=== PATIENT | female | born 1980 | race African-American/Black ===

== ENCOUNTER 2017-11-22 08:22 | Emergency (ER) | payer BC ==
[~2017-11-22] VITALS: Ht 177.8 cm; Wt 110.2 kg
[2017-11-22 08:35] VITALS: BP 124/73
[2017-11-22] MEDS ORDERED: KETOROLAC TROMETH 60MG/2ML VIAL IM ONE (09:30)
== END 2017-11-22 09:59 | disposition home or self-care (01) ==
LOC: ER 08:26
DX: S39.012A Strain of muscle, fascia and tendon of lower back, initial encounter (principal); V43.52XA Car driver injured in collision with other type car in traffic accident, initial encounter; Y93.89 Activity, other specified; Y92.89 Other specified places as the place of occurrence of the external cause; Y99.8 Other external cause status
CPT/HCPCS: 72100; 96372; 99284; J1885

== ENCOUNTER 2020-01-17 09:30 | Emergency (ER) | payer OTHER, BC ==
[~2020-01-17] VITALS: Ht 177.8 cm; Wt 95.3 kg
[2020-01-17 10:37] VITALS: BP 135/93
[2020-01-17 10:55] LABS: Urine Bacteria FEW /hpf (None Seen); Urine Blood TRACE /uL (Negative); Urine Mucus MODERATE (None Seen); Urine Specific Gravity 1.037 (1.001-1.035); Urine WBC 3 /hpf (0 - 5)
== END 2020-01-17 12:09 | disposition home or self-care (01) ==
LOC: ER 09:30
DX: S30.0XXA Contusion of lower back and pelvis, initial encounter (principal); M62.838 Other muscle spasm; V59.9XXA Occupant (driver) (passenger) of pick-up truck or van injured in unspecified traffic accident, initial encounter; Y93.89 Activity, other specified; Y92.410 Unspecified street and highway as the place of occurrence of the external cause; Y99.8 Other external cause status
CPT/HCPCS: 72040; 72100; 81001

== ENCOUNTER 2020-10-13 22:10 | Emergency (ER) | payer BC ==
[~2020-10-13] VITALS: Ht 180.3 cm; Wt 115.7 kg
[2020-10-13 23:59] LABS: Basophils # (auto) 0 10 ^3/uL (0-0.2); Basophils % (auto) 0.5 % (0.0-2.0); Eosinophils # (auto) 0.2 10 ^3/uL (0-0.8); Hematocrit 31.3 % (36.0-46.0); Hemoglobin 10.2 g/dL (12.2-16.2); Lymphocytes # (auto) 2.9 10 ^3/uL (0.4-5.4); Lymphocytes % (auto) 38.3 % (10.0-50.0); Mean Corpuscular Hemoglobin 22.9 pg (28.0-32.0); Mean Corpuscular Hgb Conc. 32.5 g/dL (32.0-36.0); Mean Corpuscular Volume 70.5 fL (80.0-100.0); Monocytes # (auto) 0.6 10 ^3/uL (0-1.3); Monocytes % (auto) 8.2 % (0.0-12.0); Neutrophils # (auto) 3.9 10 ^3/uL (1.6-8.6); Nucleated Red Blood Cells % 0.1 %; Red Blood Cells 4.43 10^6/uL (4.0-5.20); Red Cell Distribution Width 16.9 % (11.8-14.3); White Blood Cell 7.6 10^3/uL (4.4-10.8)
[2020-10-14 00:17] LABS: INR 0.99 (0.9-1.15); Partial Thromboplastin Time 27.9 sec (23.0-31.2)
[2020-10-14 00:24] LABS: Alanine Aminotransferase 17 U/L (13-56); Anion Gap 8 (5-15); Aspartate Aminotransferase 13 U/L (15-37); BUN/Creatinine Ratio 13.5; Blood Urea Nitrogen 13 mg/dL (7-18); Calcium 8.1 mg/dL (8.5-10.1); Carbon Dioxide 22 mmol/L (21-32); Chloride 110 mmol/L (98-107); GFR African American 84 mL/min; GFR Non-African American 69 mL/min; Glucose 101 mg/dL (74-106); Lipase 193 U/L (73-393); Magnesium 2.1 mg/dL (1.6-2.6); Potassium 3.3 mmol/L (3.5-5.1); Sodium 140 mmol/L (136-145)
[2020-10-14 00:29] LABS: Alkaline Phosphatase 90 U/L (45-117); Bilirubin, Total 0.1 mg/dL (0.2-1.0); Total Protein 7.2 g/dL (6.4-8.2)
[2020-10-14 01:38] LABS: Urine Bacteria FEW /hpf (None Seen); Urine Blood TRACE /uL (Negative); Urine Mucus FEW (None Seen); Urine WBC 2 /hpf (0 - 5)
[2020-10-14 02:00] VITALS: BP 102/73
[2020-10-14] MEDS ORDERED: IBUPROFEN 800 MG TAB PO ONE (02:15)
[2020-10-14] MEDS ORDERED: ONDANSETRON ODT 4 MG TAB PO ONE (02:15)
== END 2020-10-14 03:13 | disposition home or self-care (01) ==
LOC: ER 22:10
DX: G44.209 Tension-type headache, unspecified, not intractable (principal); J45.909 Unspecified asthma, uncomplicated; Z98.51 Tubal ligation status
CPT/HCPCS: 36415; 70450; 80053; 81001; 83605; 83690; 83735; 84484; 84702; 85025; 85610; 85730; 87040; 87086; 99285; Q0162

== ENCOUNTER 2021-02-16 07:43 | Emergency (ER) | payer BC ==
[~2021-02-16] VITALS: Ht 177.8 cm; Wt 108.9 kg
[2021-02-16] MEDS ORDERED: IPRATROPIUM BROM 0.5 MG/2.5ML INH SOL NEB ONE (08:00)
[2021-02-16] MEDS ORDERED: ALBUTEROL SULF 2.5 MG/0.5ML(0.5%) NEB SOLN NEB ONE ×2 (08:00→10:00)
[2021-02-16] MEDS ORDERED: methylPREDNISolone SOD SUCC 125 MG/2 ML VL IV ONE (08:00)
[2021-02-16 08:58] LABS: Basophils # (auto) 0.1 10 ^3/uL (0-0.2); Eosinophils # (auto) 0.2 10 ^3/uL (0-0.8); Eosinophils % (auto) 2.6 % (0.0-7.0); Hemoglobin 10.3 g/dL (12.2-16.2); Lymphocytes # (auto) 2.4 10 ^3/uL (0.4-5.4); Monocytes # (auto) 0.5 10 ^3/uL (0-1.3); Neutrophils # (auto) 2.8 10 ^3/uL (1.6-8.6); Nucleated Red Blood Cells % 0.1 %; White Blood Cell 5.9 10^3/uL (4.4-10.8)
[2021-02-16 09:00] LABS: Basophils % (auto) 1.1 % (0.0-2.0); Hematocrit 30.8 % (36.0-46.0); Mean Corpuscular Hemoglobin 22.7 pg (28.0-32.0); Mean Corpuscular Hgb Conc. 33.5 g/dL (32.0-36.0); Mean Corpuscular Volume 67.9 fL (80.0-100.0); Monocytes % (auto) 8.9 % (0.0-12.0); Neutrophils % (auto) 47.4 % (37.0-80.0); Red Blood Cells 4.53 10^6/uL (4.0-5.20); Red Cell Distribution Width 16.1 % (11.8-14.3)
[2021-02-16 09:15] LABS: Albumin 2.9 g/dL (3.4-5.0); Anion Gap 5 (5-15); Blood Urea Nitrogen 11 mg/dL (7-18); Calcium 8.5 mg/dL (8.5-10.1); Carbon Dioxide 23 mmol/L (21-32); Chloride 111 mmol/L (98-107); Glucose 88 mg/dL (74-106); Potassium 3.4 mmol/L (3.5-5.1); Sodium 139 mmol/L (136-145)
[2021-02-16 09:20] LABS: Alanine Aminotransferase 29 U/L (13-56); Alkaline Phosphatase 84 U/L (45-117); Aspartate Aminotransferase 13 U/L (15-37); BUN/Creatinine Ratio 12.5; Bilirubin, Total 0.3 mg/dL (0.2-1.0); GFR African American 92 mL/min; GFR Non-African American 76 mL/min; Total Protein 7.4 g/dL (6.4-8.2)
[2021-02-16] MEDS ORDERED: POTASSIUM EFFERVESENT TAB 25 MEQ PO ONE (11:15)
[2021-02-16 11:28] VITALS: BP 130/78
== END 2021-02-16 11:20 | disposition home or self-care (01) ==
LOC: ER 07:43 → EDBD 07:43 → ER 11:20
DX: J45.901 Unspecified asthma with (acute) exacerbation (principal); Z98.51 Tubal ligation status; Z20.822 Contact with and (suspected) exposure to COVID-19
CPT/HCPCS: 36415; 71045; 80053; 83880; 84484; 85025; 87426; 93005; 94640; 94644; 96374; 99285; J2930; J7644

== ENCOUNTER 2021-10-11 08:21 | Inpatient (IN) | payer BC ==
[~2021-10-11] VITALS: Ht 177.8 cm; Wt 43.1 kg
[2021-10-11 09:15] LABS: Basophils # (auto) 0 10 ^3/uL (0-0.2); Eosinophils # (auto) 0.1 10 ^3/uL (0-0.8); Hemoglobin 9.9 g/dL (12.2-16.2); Lymphocytes # (auto) 1.9 10 ^3/uL (0.4-5.4); Neutrophils # (auto) 1.8 10 ^3/uL (1.6-8.6); Neutrophils % (auto) 41.9 % (37.0-80.0)
[2021-10-11 09:17] LABS: Hematocrit 31.1 % (36.0-46.0); Lymphocytes % (auto) 44.1 % (10.0-50.0); Mean Corpuscular Hemoglobin 21.6 pg (28.0-32.0); Mean Corpuscular Hgb Conc. 31.9 g/dL (32.0-36.0); Mean Corpuscular Volume 67.7 fL (80.0-100.0); Monocytes # (auto) 0.4 10 ^3/uL (0-1.3); Nucleated Red Blood Cells % 0.1 %; Red Blood Cells 4.59 10^6/uL (4.0-5.20); Red Cell Distribution Width 16.8 % (11.8-14.3); White Blood Cell 4.3 10^3/uL (4.4-10.8)
[2021-10-11 09:42] LABS: Albumin 3.2 g/dL (3.4-5.0)
[2021-10-11 09:45] LABS: BUN/Creatinine Ratio 11.5; Bilirubin, Total 0.2 mg/dL (0.2-1.0); Total Protein 7.2 g/dL (6.4-8.2)
[2021-10-11 09:50] LABS: INR 1.05 (0.9-1.15); Partial Thromboplastin Time 27.5 sec (23.6-33.0)
[2021-10-11] MEDS ORDERED: SODIUM CHLORIDE 0.9% 1,000 ML IV ONE (10:30)
[2021-10-11 12:07] LABS: Alcohol, Urine < 3.0 mg/dL (0-10); Amphetamine Screen, Urine NEGATIVE (NEGATIVE); Barbiturate Scree,Urine NEGATIVE (NEGATIVE); Benzodiazephine Screen, Urine NEGATIVE (NEGATIVE); Cannabinoid Screen, Urine NEGATIVE (NEGATIVE); Cocaine Screen, Urine NEGATIVE (NEGATIVE); Opiate Scree,Urine NEGATIVE (NEGATIVE); Phencyclidine Screen, Urine NEGATIVE (NEGATIVE)
[2021-10-11 12:36] LABS: Urine Bacteria FEW /hpf (None Seen); Urine Blood 3+ /uL (Negative); Urine Mucus FEW (None Seen); Urine Specific Gravity 1.009 (1.001-1.035); Urine WBC 64 /hpf (0 - 5)
[2021-10-11] MEDS ORDERED: GABAPENTIN 300 MG CAP PO ONE (13:45)
[2021-10-11] MEDS: SODIUM CHLORIDE 0.9% 1,000 ML IV SCH (16:43)
[2021-10-11] MEDS ORDERED: cefTRIAXone 1GM/50ML D5W 50 ML IV ONE (16:45)
[2021-10-11 17:44] LABS: Cholesterol 112 mg/dL (< 200)
[2021-10-11 17:45] LABS: HDL Cholesterol 46 mg/dL (40-59); LDL Cholesterol 56 mg/dL (< 100); Triglycerides 65 mg/dL (< 150)
[2021-10-11] MEDS ORDERED: MORPHINE SULFATE INJECTION 2 MG/ML SYRG IV PRN (18:45)
[2021-10-11] MEDS ORDERED: GABA100C9 PO (19:23)
[2021-10-11] MEDS ORDERED: ATOR10TA PO (19:26)
[2021-10-11] MEDS ORDERED: ASPI1TAB20 PO (19:26)
[2021-10-11] MEDS ORDERED: ALBU0.084 NEB (19:26)
[2021-10-11] MEDS: MORPHINE SULFATE INJECTION 2 MG/ML SYRG IV PRN (19:28)
[2021-10-11] MEDS ORDERED: ALBUTEROL SULF 2.5 MG/0.5ML(0.5%) NEB SOLN NEB PRN (20:00)
[2021-10-11 20:02] VITALS: BP 138/72
[2021-10-11] MEDS: ONDANSETRON HCL 4 MG/2 ML VIAL IV PRN (20:28)
[2021-10-11 22:00] VITALS: BP 99/58
[2021-10-11] MEDS: HEPARIN SODIUM (PORCINE) 5000 UNITS/ML 1ML VIAL SC SCH (22:52)
[2021-10-12] MEDS: SODIUM CHLORIDE 0.9% 1,000 ML IV SCH ×3 (03:50→21:41)
[2021-10-12] MEDS: MORPHINE SULFATE INJECTION 2 MG/ML SYRG IV PRN ×3 (04:12→21:42)
[2021-10-12 05:00] VITALS: BP 97/55
[2021-10-12 07:00] LABS: Basophils # (auto) 0 10 ^3/uL (0-0.2); Basophils % (auto) 0.6 % (0.0-2.0); Eosinophils # (auto) 0.1 10 ^3/uL (0-0.8); Hemoglobin 8.9 g/dL (12.2-16.2); Lymphocytes # (auto) 2.2 10 ^3/uL (0.4-5.4); Monocytes # (auto) 0.5 10 ^3/uL (0-1.3); Nucleated Red Blood Cells % 0.1 %; White Blood Cell 4.5 10^3/uL (4.4-10.8)
[2021-10-12 07:04] LABS: Eosinophils % (auto) 3.2 % (0.0-7.0); Hematocrit 27.1 % (36.0-46.0); Lymphocytes % (auto) 49.5 % (10.0-50.0); Mean Corpuscular Hemoglobin 22.3 pg (28.0-32.0); Mean Corpuscular Hgb Conc. 32.9 g/dL (32.0-36.0); Mean Corpuscular Volume 67.6 fL (80.0-100.0); Monocytes % (auto) 10.5 % (0.0-12.0); Neutrophils # (auto) 1.6 10 ^3/uL (1.6-8.6); Neutrophils % (auto) 36.2 % (37.0-80.0); Red Blood Cells 4.01 10^6/uL (4.0-5.20); Red Cell Distribution Width 16.7 % (11.8-14.3)
[2021-10-12 07:13] LABS: Potassium 4.1 mmol/L (3.5-5.1)
[2021-10-12 07:14] LABS: Albumin 2.7 g/dL (3.4-5.0); Calcium 8.1 mg/dL (8.5-10.1)
[2021-10-12 07:19] LABS: BUN/Creatinine Ratio 15.6; Bilirubin, Total 0.2 mg/dL (0.2-1.0); Total Protein 6.2 g/dL (6.4-8.2)
[2021-10-12 09:08] VITALS: BP 112/67
[2021-10-12] MEDS: cefTRIAXone 1GM/50ML D5W 50 ML IV SCH (09:36)
[2021-10-12] MEDS: HEPARIN SODIUM (PORCINE) 5000 UNITS/ML 1ML VIAL SC SCH ×2 (09:37→22:27)
[2021-10-12 13:00] VITALS: BP 108/63
[2021-10-12] MEDS: ONDANSETRON HCL 4 MG/2 ML VIAL IV PRN (15:01)
[2021-10-12 17:00] VITALS: BP 110/57
[2021-10-12 22:00] VITALS: BP 129/36
[2021-10-13 05:00] VITALS: BP 95/45
[2021-10-13 08:39] VITALS: BP 105/60
[2021-10-13] MEDS: MORPHINE SULFATE INJECTION 2 MG/ML SYRG IV PRN ×2 (09:15→20:11)
[2021-10-13] MEDS: ONDANSETRON HCL 4 MG/2 ML VIAL IV PRN ×2 (09:15→20:11)
[2021-10-13] MEDS: cefTRIAXone 1GM/50ML D5W 50 ML IV SCH (09:16)
[2021-10-13] MEDS: TOPIRAMATE 25 MG TAB PO SCH ×2 (10:00→21:36)
[2021-10-13] MEDS ORDERED: ASPirin 81 mg TAB PO SCH (10:00)
[2021-10-13] MEDS: SODIUM CHLORIDE 0.9% 1,000 ML IV SCH (10:10)
[2021-10-13 13:00] VITALS: BP 114/71
[2021-10-13 16:45] VITALS: BP 111/66
[2021-10-13 22:00] VITALS: BP 99/51
[2021-10-13] MEDS: APIXABAN 5 MG TAB PO SCH (23:00)
[2021-10-14] MEDS: SODIUM CHLORIDE 0.9% 1,000 ML IV SCH ×3 (02:50→10:29)
[2021-10-14 05:00] VITALS: BP 115/62
[2021-10-14 08:00] VITALS: BP 98/47
[2021-10-14] MEDS: ONDANSETRON HCL 4 MG/2 ML VIAL IV PRN (08:05)
[2021-10-14] MEDS: cefTRIAXone 1GM/50ML D5W 50 ML IV SCH (08:39)
[2021-10-14] MEDS: TOPIRAMATE 25 MG TAB PO SCH ×2 (08:39→22:24)
[2021-10-14] MEDS: APIXABAN 5 MG TAB PO SCH ×2 (08:39→22:24)
[2021-10-14] MEDS: DOCUSATE SOD 100 MG CAP PO SCH ×2 (10:30→22:24)
[2021-10-14 12:00] VITALS: BP 114/65
[2021-10-14 16:00] VITALS: BP 107/54
[2021-10-14] MEDS: MORPHINE SULFATE INJECTION 2 MG/ML SYRG IV PRN (16:59)
[2021-10-14 22:00] VITALS: BP 86/43
[2021-10-15] MEDS: SODIUM CHLORIDE 0.9% 1,000 ML IV SCH (02:00)
[2021-10-15 05:00] VITALS: BP 92/41
[2021-10-15] MEDS: cefTRIAXone 1GM/50ML D5W 50 ML IV SCH (08:12)
[2021-10-15] MEDS: DOCUSATE SOD 100 MG CAP PO SCH (08:12)
[2021-10-15] MEDS: APIXABAN 5 MG TAB PO SCH (08:13)
[2021-10-15] MEDS: TOPIRAMATE 25 MG TAB PO SCH (08:13)
[2021-10-15 09:00] VITALS: BP 115/72
[2021-10-15] MEDS ORDERED: APIX5TAB PO (10:41)
[2021-10-15] MEDS ORDERED: TOPI25TA43 PO (10:41)
[2021-10-15 11:11] VITALS: BP 125/80
== END 2021-10-15 12:42 | disposition home or self-care (01) | DRG 103 ==
LOC: ER 08:21 → TELE-EAST 16:34
PROVIDERS: ADMIT Registered Nurse; ATTEND Family Medicine
DX: G43.409 Hemiplegic migraine, not intractable, without status migrainosus (principal); G45.9 Transient cerebral ischemic attack, unspecified; E44.1 Mild protein-calorie malnutrition; N39.0 Urinary tract infection, site not specified; Z68.1 Body mass index [BMI] 19.9 or less, adult; G81.94 Hemiplegia, unspecified affecting left nondominant side; Q21.1 Atrial septal defect; D50.9 Iron deficiency anemia, unspecified; E88.09 Other disorders of plasma-protein metabolism, not elsewhere classified; J45.909 Unspecified asthma, uncomplicated; E66.9 Obesity, unspecified; Z20.822 Contact with and (suspected) exposure to COVID-19; R53.81 Other malaise; Z79.01 Long term (current) use of anticoagulants; Z79.82 Long term (current) use of aspirin; Z79.899 Other long term (current) drug therapy; Z82.3 Family history of stroke; Z82.49 Family history of ischemic heart disease and other diseases of the circulatory system; Z83.3 Family history of diabetes mellitus; Z98.51 Tubal ligation status
CPT/HCPCS: 36415; 70450; 70551; 71046; 80053; 80061; 80307; 81001; 83735; 84443; 84484; 84702; 85025; 85610; 85730; 87040; 87086; 93005; 93306; 93886; 96361; 96365; G0378; J0696; J2405

== ENCOUNTER 2021-11-21 21:10 | Emergency (ER) | payer BC ==
[~2021-11-21 21:10] MED LIST: ALBU0.084 NEB; APIX5TAB PO; ASPI1TAB20 PO; ATOR10TA PO; GABA100C9 PO; TOPI25TA43 PO
== END 2021-11-21 21:18 | disposition left against medical advice (07) ==
LOC: ER 21:15
DX: R07.89 Other chest pain (principal); Z53.21 Procedure and treatment not carried out due to patient leaving prior to being seen by health care provider

== ENCOUNTER 2022-11-17 09:22 | Emergency (ER) | payer BC ==
[~2022-11-17] VITALS: Ht 177.8 cm; Wt 133.3 kg
[2022-11-17 09:32] VITALS: BP 152/92
[2022-11-17] MEDS ORDERED: KETOROLAC TROMETH 60MG/2ML VIAL IM ONE (11:00)
[2022-11-17] MEDS ORDERED: ONDA-144 PO (11:08)
[2022-11-17] MEDS ORDERED: IBUP800T27 PO (11:08)
== END 2022-11-17 11:25 | disposition home or self-care (01) ==
LOC: ER 09:22
DX: G43.909 Migraine, unspecified, not intractable, without status migrainosus (principal); J45.909 Unspecified asthma, uncomplicated; Z79.899 Other long term (current) drug therapy; Z79.82 Long term (current) use of aspirin; Z86.73 Personal history of transient ischemic attack (TIA), and cerebral infarction without residual deficits; Z98.890 Other specified postprocedural states; Z98.51 Tubal ligation status
CPT/HCPCS: 70450; 96372; 99285; J1885

== ENCOUNTER 2024-01-16 07:59 | Inpatient (IN) | payer BC ==
[~2024-01-16] VITALS: Ht 177.8 cm; Wt 122.0 kg
[~2024-01-16 07:59] MED LIST changes: +GABA-1308 PO; -GABA100C9 PO; +IBUP-1456 PO; +ONDA-144 PO
[2024-01-16 08:31] LABS: Urine Bacteria FEW /hpf (None Seen); Urine Blood Negative /uL (Negative); Urine Clarity Clear (Clear); Urine Color Light-Yellow (Yellow); Urine Mucus FEW (None Seen); Urine Protein, UAD Negative (Negative); Urine Urobilinogen Normal (Negative); Urine WBC 9 /hpf (0 - 5); Urine pH 5.5 (5.0-9.0)
[2024-01-16 08:32] LABS: Basophils # (auto) 0 10 ^3/uL (0-0.2); Eosinophils # (auto) 0.2 10 ^3/uL (0-0.8); Monocytes # (auto) 0.6 10 ^3/uL (0-1.3); Red Blood Cells 4.58 10^6/uL (4.0-5.20); White Blood Cell 6.4 10^3/uL (4.4-10.8)
[2024-01-16 08:33] LABS: Basophils % (auto) 0.5 % (0.0-2.0); Hematocrit 31.7 % (36.0-46.0); Hemoglobin 10.3 g/dL (12.2-16.2); Lymphocytes # (auto) 2.8 10 ^3/uL (0.4-5.4); Lymphocytes % (auto) 44.4 % (10.0-50.0); Mean Corpuscular Hemoglobin 22.5 pg (28.0-32.0); Mean Corpuscular Hgb Conc. 32.4 g/dL (32.0-36.0); Mean Corpuscular Volume 69.4 fL (80.0-100.0); Neutrophils # (auto) 2.7 10 ^3/uL (1.6-8.6); Neutrophils % (auto) 43.1 % (37.0-80.0); Nucleated Red Blood Cells % 0.1 %; Red Cell Distribution Width 17.6 % (11.8-14.3)
[2024-01-16 08:52] LABS: Anion Gap 6 (5-15); Carbon Dioxide 24 mmol/L (20-30); Chloride 108 mmol/L (98-107); Potassium 3.8 mmol/L (3.5-5.1); Sodium 138 mmol/L (136-145)
[2024-01-16 08:53] LABS: Calcium 9.5 mg/dL (8.5-10.1)
[2024-01-16 08:58] LABS: BUN/Creatinine Ratio 13.3 (10.0-20.0); Blood Urea Nitrogen 12 mg/dL (9-23); Glucose 98 mg/dL (74-106)
[2024-01-16] MEDS: SODIUM CHLORIDE 0.9% 1,000 ML IV ONE ×2 (09:40)
[2024-01-16] MEDS: KETOROLAC TROMETH 30 MG/ML 1ML VIAL IV ONE (09:43)
[2024-01-16] MEDS: cefTRIAXone 1GM/50ML D5W 50 ML IV ONE (09:44)
[2024-01-16 09:59] VITALS: PULSE 75; RESP 20; O2SAT 96
[2024-01-16 10:25] VITALS: PULSE 74; RESP 12; O2SAT 99
[2024-01-16] MEDS ORDERED: ACETAMINOPHEN 325 MG TAB PO PRN (12:00)
[2024-01-16] MEDS ORDERED: SODIUM CHLORIDE 0.9% 1,000 ML IV SCH (12:00)
[2024-01-16 12:53] LABS: Triglycerides 109 mg/dL (< 150)
[2024-01-16 12:54] LABS: LDL Cholesterol 90 mg/dL (< 100)
[2024-01-16 12:55] LABS: Cholesterol 146 mg/dL (< 200); HDL Cholesterol 47 mg/dL (40-59)
[2024-01-16] MEDS: GABAPENTIN 100 MG CAP PO SCH (14:08)
[2024-01-16] MEDS: IBUPROFEN 800 MG TAB PO SCH (14:08)
[2024-01-16] MEDS: metroNIDAZOLE 500MG/100ML 100 ML IV ONE (14:15)
[2024-01-16] MEDS: PANTOPRAZOLE 40 MG/10 ML VIAL INJ IV ONE (14:15)
[2024-01-16 17:24] VITALS: BP 126/75; PULSE 71; RESP 18; TEMP 98.5; O2SAT 96
[2024-01-16] MEDS: SODIUM CHLORIDE 0.9% 1,000 ML IV SCH (17:39)
[2024-01-16] MEDS: MORPHINE SULFATE INJ 2 MG/ml SYRG IV PRN (17:40)
[2024-01-16] MEDS: HYDROcodone-ACET 5/325MG TAB PO PRN (19:56)
[2024-01-16 20:00] VITALS: PULSE 74; RESP 16; O2SAT 100
[2024-01-16 20:56] VITALS: BP 110/61; PULSE 79; RESP 16; TEMP 98.3; O2SAT 100
[2024-01-16] MEDS: APIXABAN 5 MG TAB PO SCH (23:28)
[2024-01-16] MEDS: TOPIRAMATE 25 MG TAB PO SCH (23:28)
[2024-01-16] MEDS: ATORVASTATIN 20 MG TAB PO SCH (23:28)
[2024-01-16] MEDS: metroNIDAZOLE 500MG/100ML 100 ML IV SCH (23:32)
[2024-01-17] VITALS (9 sets, daily range): BP systolic 100–121; BP diastolic 52–69; PULSE 63–81; RESP 16–18; TEMP 98.2–98.4; O2SAT 98–100
[2024-01-17] MEDS ORDERED: ALBUTEROL SULF 2.5 MG/0.5ML(0.5%) NEB SOLN NEB PRN (03:00)
[2024-01-17 07:44] LABS: Basophils # (auto) 0 10 ^3/uL (0-0.2); Eosinophils # (auto) 0.2 10 ^3/uL (0-0.8); Hemoglobin 9.3 g/dL (12.2-16.2); Lymphocytes # (auto) 2.3 10 ^3/uL (0.4-5.4); Mean Corpuscular Hemoglobin 22.3 pg (28.0-32.0); Mean Corpuscular Hgb Conc. 31.5 g/dL (32.0-36.0); Monocytes # (auto) 0.6 10 ^3/uL (0-1.3); Neutrophils # (auto) 2.1 10 ^3/uL (1.6-8.6); Nucleated Red Blood Cells % 0.1 %; Red Cell Distribution Width 17.5 % (11.8-14.3)
[2024-01-17 07:46] LABS: Basophils % (auto) 0.3 % (0.0-2.0); Eosinophils % (auto) 3.4 % (0.0-7.0); Hematocrit 29.5 % (36.0-46.0); Mean Corpuscular Volume 70.6 fL (80.0-100.0); Monocytes % (auto) 11.7 % (0.0-12.0); Neutrophils % (auto) 40.6 % (37.0-80.0); Red Blood Cells 4.17 10^6/uL (4.0-5.20); White Blood Cell 5.3 10^3/uL (4.4-10.8)
[2024-01-17 07:56] LABS: Alkaline Phosphatase 66 U/L (46-116); Anion Gap 6 (5-15); BUN/Creatinine Ratio 8.4 (10.0-20.0); Blood Urea Nitrogen 7 mg/dL (9-23); Calcium 8.3 mg/dL (8.7-10.4); Carbon Dioxide 22 mmol/L (20-30); Chloride 111 mmol/L (98-107); Glucose 94 mg/dL (74-106); Sodium 139 mmol/L (136-145)
[2024-01-17 07:57] LABS: Albumin 3.2 g/dL (3.2-4.8); Aspartate Aminotransferase 9 U/L (13-40); Bilirubin, Total 0.2 mg/dL (0.2-1.0); Total Protein 5.8 g/dL (5.7-8.2)
[2024-01-17 07:58] LABS: Alanine Aminotransferase < 9 U/L (7-40)
[2024-01-17] MEDS: ASPirin-EC 81 mg tab PO SCH (08:00)
[2024-01-17] MEDS: cefTRIAXone 1GM/50ML D5W 50 ML IV SCH (09:05)
[2024-01-17] MEDS: PANTOPRAZOLE 40 MG/10 ML VIAL INJ IV SCH (09:05)
[2024-01-17] MEDS ORDERED: ENOXAPARIN SOD 40 MG/0.4 ML SYRINGE SC SCH (10:00)
[2024-01-17] MEDS: SODIUM CHLORIDE 0.9% 1,000 ML IV SCH (14:15)
[2024-01-17] MEDS: SODIUM CHLORIDE 0.9% 2,000 ML IV ONE (15:00)
[2024-01-18] VITALS (9 sets, daily range): BP systolic 94–121; BP diastolic 52–71; PULSE 65–84; RESP 16–20; TEMP 98–98.7; O2SAT 94–99
[2024-01-18] MEDS: ONDANSETRON HCL 4 MG/2 ML VIAL IV PRN (04:53)
[2024-01-18] MEDS: SODIUM CHLORIDE 0.9% 2,000 ML IV ONE (18:26)
[2024-01-19] VITALS (8 sets, daily range): BP systolic 95–137; BP diastolic 44–73; PULSE 62–79; RESP 16–20; TEMP 97.6–98.7; O2SAT 95–100
[2024-01-19] MEDS ORDERED: NAP500T PO (15:52)
[2024-01-19] MEDS ORDERED: METR-344 PO (15:52)
[2024-01-24] MEDS ORDERED: APIXABAN 5 MG TAB PO SCH (10:00)
== END 2024-01-19 17:00 | disposition home or self-care (01) | DRG 872 ==
LOC: ER 07:59 → OVERFLOW 11:48 → WEST WING 17:19
PROVIDERS: ADMIT Nurse Practitioner Family; ATTEND Internal Medicine
DX: A41.9 Sepsis, unspecified organism (principal); N39.0 Urinary tract infection, site not specified; E66.01 Morbid (severe) obesity due to excess calories; Z68.37 Body mass index [BMI] 37.0-37.9, adult; J45.909 Unspecified asthma, uncomplicated; N20.0 Calculus of kidney; K52.9 Noninfective gastroenteritis and colitis, unspecified; Z86.73 Personal history of transient ischemic attack (TIA), and cerebral infarction without residual deficits; Z98.51 Tubal ligation status; Z87.74 Personal history of (corrected) congenital malformations of heart and circulatory system; Z83.3 Family history of diabetes mellitus; Z82.49 Family history of ischemic heart disease and other diseases of the circulatory system; Z80.49 Family history of malignant neoplasm of other genital organs; Z80.3 Family history of malignant neoplasm of breast
CPT/HCPCS: 36415; 74176; 80048; 80053; 80061; 81001; 84443; 85025; 87086; C9113; G0378; J1885; J2405; J3490